=== PATIENT | female | born 1955 | race Asian ===

== ENCOUNTER 2016-06-17 17:35 | Emergency (ER) | payer SELFPAY ==
[~2016-06-17] VITALS: Ht 154.9 cm; Wt 44.0 kg
[2016-06-17] MEDS ORDERED: NKM (17:58)
[2016-06-17 18:01] VITALS: BP 155/83
[2016-06-17 18:15] LABS: APPEARANCE,URINE SLIGHTLY CLOUDY; KETONES,URINE NEGATIVE (NEGATIVE); LEUKOCYTE ESTERASE ,URINE 3+ (NEGATIVE); NITRITE,URINE NEGATIVE (NEGATIVE); PH,URINE 7 (4.5-8.0); PROTEIN,URINE 2+ (NEGATIVE); UROBILINOGEN,URINE NORMAL MG/DL (0.0-1.0)
[2016-06-17 19:02] LABS: AMORPHOUS SEDIMENT,UR FEW /LPF; BACTERIA,URINE MODERATE /HPF; SQUAMOUS EPITHELIAL CELL,UR FEW /LPF (NONE/OCC); WBC,URINE 20-30 /HPF (0 - 2)
[2016-06-17 19:13] VITALS: BP 155/91
[2016-06-17] MEDS ORDERED: KEFLEX500 MG ORAL (19:15)
--- NOTE | 2016-06-17 22:40 | Emergency Room Report ---
History of Present Illness General Chief Complaint: Female Urogenital Problems Source: Patient Present Illness HPI 61-year-old female presents to ED complaining of dysuria x4 days. There is frequent history of UTI. Notes burning sensation, 10 out of 10, worse with urination. Denies flank pain. Denies nausea or vomiting. Denies fevers or chills. No aggravating relieving factors. Denies any other associated symptom Allergies: Coded Allergies: No Known Allergies (Unverified , 06/17/16) Patient History Past Medical History: none Past Surgical History: none Pertinent Family History: none Social History: Denies: alcohol use, drug use, smoking Now: No Immunizations: UTD Reviewed Nursing Documentation: PMH: Agreed, PSxH: Agreed Nursing Documentation-PMH Past Medical History: No Stated History Review of Systems All Other Systems: negative except mentioned in HPI Physical Exam Vital Signs Date Time Temp Pulse Resp B/P Pulse Ox O2 Delivery O2 Flow Rate FiO2 06/17/16 17:51 98.8 76 16 155/83 100 Room Air Sp02 EP Interpretation: reviewed, normal General Appearance: no apparent distress, alert, GCS 15, non-toxic Head: normocephalic Eyes: bilateral eye PERRL, bilateral eye normal inspection ENT: normal ENT inspection Neck: normal inspection Respiratory: normal inspection Cardiovascular #1: normal inspection Gastrointestinal: normal bowel sounds, non tender, soft, non-distended, no guarding, no rebound Rectal: deferred Genitourinary: no CVA tenderness Musculoskeletal: normal inspection Neurologic: alert, oriented x3, responsive, motor strength/tone normal, sensory intact, speech normal Psychiatric: normal inspection Skin: normal inspection Lymphatic: normal inspection Medical Decision Making Diagnostic Impression: Primary Impression: Urinary tract infection Qualified Codes: N39.0 - Urinary tract infection, site not specified ER Course Hospital Course 61-year-old female presents to ED complaining of dysuria Differential diagnoses include: UTI, cystitis, pyelonephritis Clinical course Patient placed on stretcher. After initial history and physical I ordered UA UA +bacteria Diagnosis - UTI Stable and discharged home with prescriptions for Rx Keflex. Instructed to followup with PMD. Return to ED if symptoms recur or worsen Labs Test 06/17/16 18:05 Urine Color Pale yellow Urine Appearance Slightly cloudy Urine pH 7 (4.5-8.0) Urine Specific [place] 1.005 (1.005-1.035) Urine Protein 2+ (NEGATIVE) Urine Glucose (UA) Negative (NEGATIVE) Urine Ketones Negative (NEGATIVE) Urine Occult Blood 5+ (NEGATIVE) Urine Nitrite Negative (NEGATIVE) Urine Bilirubin Negative (NEGATIVE) Urine Urobilinogen Normal MG/DL (0.0-1.0) Urine Leukocyte Esterase 3+ (NEGATIVE) Urine RBC 10-15 /HPF (0 - 2) Urine WBC 20-30 /HPF (0 - 2) Urine Squamous Epithelial Cells Few /LPF (NONE/OCC) Urine Amorphous Sediment Few /LPF (NONE) Urine Bacteria Moderate /HPF (NONE) Last Vital Signs Date Time Temp Pulse Resp B/P Pulse Ox O2 Delivery O2 Flow Rate FiO2 06/17/16 19:13 98.8 16 155/91 100 Room Air 06/17/16 17:51 76 Status: improved Disposition: HOME, SELF-CARE Condition: Stable Scripts Cephalexin* (KEFLEX*) 500 Mg Capsule 500 MG ORAL Q6H, #28 CAP 0 Refills Prov: EVERETT SAAVEDRA M.D. 06/17/16 Referrals: NOT CHOSEN EMILIE/,REFERRING (PCP) Patient Instructions: Urinary Tract Infection EVERETT SAAVEDRA M.D. Jun 17, 2016 22:40
== END 2016-06-17 19:13 | disposition home or self-care (01) ==
LOC: EMR 18:19
DX: N39.0 Urinary tract infection, site not specified (principal)
CPT/HCPCS: 81003; 87086; 87181; 99283

== ENCOUNTER 2019-11-02 09:23 | Emergency (ER) | payer MEDICAID, OTHER ==
[~2019-11-02] VITALS: Ht 154.9 cm; Wt 43.1 kg
[~2019-11-02 09:23] MED LIST: KEFLEX500 MG ORAL; NKM
[2019-11-02 10:05] VITALS: BP 175/75
[2019-11-02] MEDS ORDERED: Bacitracin Oint UD TOPIC ONE (10:45)
[2019-11-02] MEDS ORDERED: Tetanus/Diptheria/Pertussis IM ONE (10:45)
--- NOTE | 2019-11-02 12:12 | Emergency Room Report ---
History of Present Illness General Chief Complaint: Lower Back Pain or Injury Source: Patient Present Illness HPI Patient slipped in the shower last night and fell onto her back and elbow. She did not lose consciousness. She cut her elbow. The pain is severe at this time. She is able to ambulate. She denies any numbness or weakness in her lower extremities. She is not taking any medication. She states the pain is severe and rates it 9/10. When I asked her if it is in her back she says no is above her back. Also her tailbone is sore. There is no radiation down her legs. There is no numbness or weakness. She denies blood thinners, oncologic problems, prior fractures. She denies incontinence or perineal numbness. She has placed an ice pack on the area and it is helping but she still complains of severe pain. She is uncertain when her last tetanus shot was. No sore throat, chest pain, palpitations, nausea, vomiting, diarrhea, dysuria, abdominal pain, shortness of breath, depression, anxiety, visual changes, dizziness, headache. Allergies: Coded Allergies: No Known Allergies (Unverified , 06/17/16) COVID-19 Screening Contact w/high risk pt: No Experienced COVID-19 symptoms?: No COVID-19 Testing performed SHOE LINING FITTER: No Patient History Past Medical History: see triage record Social History: Denies: smoking, alcohol use Social History Narrative From home Reviewed Nursing Documentation: PMH: Agreed; PSxH: Agreed Nursing Documentation-PMH Past Medical History: No History, Except For Hx Hypertension: Yes Review of Systems All Other Systems: negative except mentioned in HPI Physical Exam Vital Signs Date Time Temp Pulse Resp B/P (MAP) Pulse Ox O2 Delivery O2 Flow Rate FiO2 11/02/19 10:05 98.9 86 20 175/75 96 Room Air Sp02 EP Interpretation: reviewed, normal General Appearance: well appearing, no apparent distress, GCS 15, non-toxic Head: normocephalic Eyes: bilateral eye normal inspection, bilateral eye PERRL ENT: moist mucus membranes Neck: full range of motion, supple, no bony tend Respiratory: lungs clear Cardiovascular #1: regular rate, rhythm Cardiovascular #2: 2+ radial (R) Gastrointestinal: normal inspection, normal bowel sounds, non tender Musculoskeletal: gait/station normal, normal range of motion, pelvis stable, tenderness - Lumbar area no point tenderness, also tenderness in the coccyx area , moves extm spontaneously Neurologic: alert, motor strength/tone normal, DTRs symmetric, sensory intact, cerebellar normal, speech normal Psychiatric: mood/affect normal - Slightly anxious Skin: normal color, laceration - Right elbow 3 cm superficial no bleeding Procedures Laceration/Wound Repair Laceration/Wound Repair : Consent: Verbal Wound Location: upper extremity Wound's Depth, Shape: superficial Wound Length (cm): 2 Wound Explored: clean Betadine Prep?: Yes Anesthesia: other - None Wound Debrided: None Wound Repaired With: Steri-strips Sterile Dressing Applied?: Yes Splint Applied?: No Sling Applied?: No Patient Tolerated: Well Progress Wound care was performed by RN Medical Decision Making Diagnostic Impression: Primary Impression: Multiple trauma Additional Impressions: Back contusion Qualified Codes: S20.229A - Contusion of unspecified back wall of thorax, initial encounter Elbow laceration Qualified Codes: S51.011A - Laceration without foreign body of right elbow, initial encounter ER Course Patient presents post slip and fall with back pain and right elbow laceration. Differential includes compression fracture, contusion, superficial laceration, lumbar sprain amongst others. Patient is ambulatory and does not have point tenderness of her back but because of her age lumbar spine films are indicated. In addition there are no red flag signs or symptoms. Patient treated with Tylenol. The laceration is superficial and this is a late presentation. Steri- Strips are adequate to close the laceration. Lumbar spine films without fracture. Patient improved with treatment. Discussed findings with patient and treatment plan. Patient stable for outpatient observation and treatment. Other X-Ray Diagnostic Results Other X-Ray Diagnostic Results : X-Ray ordered: Lumbar spine film # of Views/Limited Vs Complete: 3 View Indication: Pain EP Interpretation: Yes Interpretation: no dislocation, no soft tissue swelling, no fractures, other - Increased stool load Impression: Other Electronically Signed by: Electronically signed by Kevin Dyer MD Last Vital Signs Date Time Temp Pulse Resp B/P (MAP) Pulse Ox O2 Delivery O2 Flow Rate FiO2 11/02/19 12:20 98.6 84 17 180/90 98 Room Air Status: improved Disposition: HOME, SELF-CARE Condition: Improved Scripts Acetaminophen (Tylenol) 325 Mg Tablet 650 MG ORAL Q6H PRN for Prn Pain/Headache/Temp > 101, #20 TAB 0 Refills Prov: Kevin Dyer MD 11/02/19 Tramadol Hcl* (ULTRAM*) 50 Mg Tablet 50 MG ORAL Q6H PRN for For Pain, #12 TAB 0 Refills Prov: Kevin Dyer MD 11/02/19 Methocarbamol* (ROBAXIN-500*) 500 Mg Tablet 500 MG ORAL TID PRN for For Pain, #10 TAB 0 Refills Prov: Kevin Dyer MD 11/02/19 Referrals: NON PHYSICIAN (PCP) Kevin Dyer MD Nov 02, 2019 12:12
[2019-11-02] MEDS ORDERED: TRAMADOL HCL50 MG ORAL (12:15)
[2019-11-02] MEDS ORDERED: TYLENOL325 MG ORAL (12:15)
[2019-11-02] MEDS ORDERED: ROBAXIN-500MG ORAL (12:15)
[2019-11-02 12:20] VITALS: BP 180/90
--- NOTE | 2019-11-02 12:28 | Diagnostic Imaging Report ---
EXAM: X-RAY [facility] CLINICAL HISTORY: Back pain. COMPARISON: None FINDINGS: Total of 3 views of the lumbar spine were obtained. Alignment is anatomic. There is diffuse osteopenia. There is loss of height of the T12 vertebral body of undetermined age. Lumbar spine otherwise intact. Disc spaces are relatively well-maintained. Surrounding soft tissue is normal. IMPRESSION: MILD LOSS OF HEIGHT OF THE T12 VERTEBRAL BODY OF UNDETERMINED AGE.
== END 2019-11-02 12:20 | disposition home or self-care (01) ==
LOC: EMR 10:20
DX: S20.229A Contusion of unspecified back wall of thorax, initial encounter (principal); S51.011A Laceration without foreign body of right elbow, initial encounter; W18.2XXA Fall in (into) shower or empty bathtub, initial encounter; Y92.9 Unspecified place or not applicable; I10 Essential (primary) hypertension
CPT/HCPCS: 72020; 90471; 90715; 99283

== ENCOUNTER 2019-11-04 07:58 | Emergency (ER) | payer MEDICAID, OTHER ==
[~2019-11-04] VITALS: Ht 154.9 cm; Wt 43.1 kg
[~2019-11-04 07:58] MED LIST changes: +ROBAXIN-500MG ORAL; +TRAMADOL HCL50 MG ORAL; +TYLENOL325 MG ORAL
[2019-11-04 08:19] VITALS: BP 164/78
--- NOTE | 2019-11-04 08:21 | Emergency Room Report ---
History of Present Illness General Chief Complaint: Vomiting Source: Patient Present Illness HPI Is a 64-year-old female who presented after recent fall. She reports having fallen in the bathtub. Increased pain to the low back. Return to the hospital because she was having episode of vomiting after taking her medications. Denies any abdominal pain. Denies taking any blood thinners. Allergies: Coded Allergies: No Known Allergies (Unverified , 06/17/16) COVID-19 Screening Contact w/high risk pt: No Experienced COVID-19 symptoms?: No COVID-19 Testing performed COMMERCIAL OR INSTITUTIONAL CLEANER: No Patient History Reviewed Nursing Documentation: PMH: Agreed; PSxH: Agreed Nursing Documentation-PM Past Medical History: No History, Except For Hx Hypertension: Yes Review of Systems All Other Systems: negative except mentioned in HPI Physical Exam Vital Signs Date Time Temp Pulse Resp B/P (MAP) Pulse Ox O2 Delivery O2 Flow Rate FiO2 11/04/19 08:03 98.2 72 16 164/78 (106) 100 Room Air Sp02 EP Interpretation: reviewed, normal General Appearance: normal inspection, well appearing, no apparent distress, alert, GCS 15 Head: atraumatic ENT: normal ENT inspection, hearing grossly normal, normal voice Neck: normal inspection, full range of motion, supple, no bony tend Respiratory: normal inspection, lungs clear, normal breath sounds, no respiratory distress, no retraction, no wheezing Cardiovascular #1: regular rate, rhythm, no edema Gastrointestinal: normal inspection, normal bowel sounds, non tender, soft, no guarding, no hernia Genitourinary: no CVA tenderness Musculoskeletal: normal inspection, back normal, normal range of motion Neurologic: alert, motor strength/tone normal, commutator assembler III-XII nml as tested, responsive, speech normal, abnormal gait - Wide-based gait, normal inspection Psychiatric: normal inspection, judgement/insight normal, mood/affect normal Medical Decision Making Diagnostic Impression: Primary Impression: Compression fracture of T12 vertebra Additional Impressions: Hyponatremia Lacunar infarct, acute ER Course Patient presented for low back pain. Differential diagnosis include was not limited to fracture, contusion, head injury among others. Because of complexity of patient's case laboratory tests and imaging studies were ordered. Patient was noted to have somewhat abnormal gait she had increased difficulty with movement due to pain. CT imaging of the lumbar spine was ordered due to patient's persistent pain CT imaging showed compression fracture of the T12 body. CT of the head read by radiology showed periventricular white matter disease as well as symmetric low density in the basal ganglia bilaterally possible of bilateral lacunar infarct should be considered in addition no focal low density is noted in the anabelle and midbrain infarct versus demyelination. Patient will require further evaluation with MRI. Patient was discussed with Dr. HILL and patient will be transferred to [facility]. Patient appears to be stable for transfer. Labs Test 11/04/19 08:30 11/04/19 09:30 White Blood Count 14.8 K/UL (4.8-10.8) Red Blood Count 3.96 M/UL (4.20-5.40) Hemoglobin 13.2 G/DL (12.0-16.0) Hematocrit 37.6 % (37.0-47.0) Mean Corpuscular Volume 95 FL (80-99) Mean Corpuscular Hemoglobin 33.4 PG (27.0-31.0) Mean Corpuscular Hemoglobin Concent 35.2 G/DL (32.0-36.0) Red Cell Distribution Width 10.9 % (11.6-14.8) Platelet Count 342 K/UL (150-450) Mean Platelet Volume 7.2 FL (6.5-10.1) Neutrophils (%) (Auto) % (45.0-75.0) Lymphocytes (%) (Auto) % (20.0-45.0) Monocytes (%) (Auto) % (1.0-10.0) Eosinophils (%) (Auto) % (0.0-3.0) Basophils (%) (Auto) % (0.0-2.0) Differential Total Cells Counted 100 Neutrophils % (Manual) 86 % (45-75) Lymphocytes % (Manual) 6 % (20-45) Monocytes % (Manual) 8 % (1-10) Eosinophils % (Manual) 0 % (0-3) Basophils % (Manual) 0 % (0-2) Band Neutrophils 0 % (0-8) Platelet Estimate Adequate Platelet Morphology Normal Red Blood Cell Morphology Normal Prothrombin Time 11.1 SEC (9.30-11.50) Prothromb Time International Ratio 1.0 (0.9-1.1) Activated Partial Thromboplast Time 25 SEC (23-33) Sodium Level 124 MMOL/L (136-145) Potassium Level 3.1 MMOL/L (3.5-5.1) Chloride Level 89 MMOL/L (98-107) Carbon Dioxide Level 30 MMOL/L (21-32) Anion Gap 5 mmol/L (5-15) Blood Urea Nitrogen 10 mg/dL (7-18) Creatinine 0.6 MG/DL (0.55-1.30) Estimat Glomerular Filtration Rate > 60 mL/min (>60) Glucose Level 131 MG/DL (74-106) Calcium Level 9.1 MG/DL (8.5-10.1) Total Bilirubin 0.6 MG/DL (0.2-1.0) Aspartate Amino Transf (AST/SGOT) 21 U/L (15-37) Alanine Aminotransferase (ALT/SGPT) 22 U/L (12-78) Alkaline Phosphatase 52 U/L (46-116) Total Protein 7.9 G/DL (6.4-8.2) Albumin 3.6 G/DL (3.4-5.0) Globulin 4.3 g/dL Albumin/Globulin Ratio 0.8 (1.0-2.7) Lipase 82 U/L (73-393) Urine Color Pale yellow Urine Appearance Clear Urine pH 6.5 (4.5-8.0) Urine Specific [place] 1.010 (1.005-1.035) Urine Protein Negative (NEGATIVE) Urine Glucose (UA) Negative (NEGATIVE) Urine Ketones 2+ (NEGATIVE) Urine Blood 2+ (NEGATIVE) Urine Nitrite Negative (NEGATIVE) Urine Bilirubin Negative (NEGATIVE) Urine Urobilinogen Normal MG/DL (0.0-1.0) Urine Leukocyte Esterase Negative (NEGATIVE) Last Vital Signs Date Time Temp Pulse Resp B/P (MAP) Pulse Ox O2 Delivery O2 Flow Rate FiO2 11/04/19 08:03 98.2 72 16 164/78 (106) 100 Room Air Status: unchanged Disposition: SHORT-TERM HOSP Condition: Stable Ric Phillips MD Nov 04, 2019 08:21
[2019-11-04 08:49] LABS: HEMATOCRIT 37.6 % (37.0-47.0); HEMOGLOBIN 13.2 G/DL (12.0-16.0); MEAN CORPUSCULAR VOLUME 95 FL (80-99); PLATELET COUNT 342 K/UL (150-450); RED BLOOD COUNT 3.96 M/UL (4.20-5.40); RED CELL DISTRIBUTION WIDTH 10.9 % (11.6-14.8); WHITE BLOOD COUNT 14.8 K/UL (4.8-10.8)
--- NOTE | 2019-11-04 09:00 | NUR ---
ED Nurse Note:pt. came from home with c/o back pain and nausea vomiting, also c/o generalized weakness, VSS, ambulatory with unsteady gait, blood and urine sent to labs, skin is intact
[2019-11-04 09:07] LABS: ANION GAP 5 mmol/L (5-15); BLOOD UREA NITROGEN 10 mg/dL (7-18); CALCIUM 9.1 MG/DL (8.5-10.1); CARBON DIOXIDE 30 MMOL/L (21-32); CHLORIDE 89 MMOL/L (98-107); CREATININE 0.6 MG/DL (0.55-1.30); POTASSIUM 3.1 MMOL/L (3.5-5.1); SODIUM 124 MMOL/L (136-145)
[2019-11-04 09:12] LABS: ALANINE AMINOTRANSFERASE 22 U/L (12-78); ALBUMIN 3.6 G/DL (3.4-5.0); ALBUMIN/GLOBULIN RATIO 0.8 (1.0-2.7); ALKALINE PHOSPHATASE 52 U/L (46-116); ASPARTATE AMINO TRANSFERASE 21 U/L (15-37); BILIRUBIN,TOTAL 0.6 MG/DL (0.2-1.0)
--- NOTE | 2019-11-04 09:42 | Diagnostic Imaging Report ---
Indication: Reason For Exam: PAIN Technique: Continuous helical CT scanning of the head was performed without intravenous contrast material. Axial and coronal 5 mm sections were generated. Dose: Total Dose Length Product - DLP 04/01/[address] Dose Index - CTDIvol(s) 53.40 mGy. Automated exposure control was utilized for dose reduction. Comparison: None Findings: The ventricles are normal. There is considerable periventricular low density. Low-density is also noted in the basal ganglia bilaterally. There is also focal low density in the right anabelle and right midbrain. No shift of midline structures. No abnormal extra-axial fluid collections. No evidence of hemorrhage. Impression: Periventricular low-density likely representing chronic small vessel white matter ischemic change. There is also symmetric low density in the basal ganglia bilaterally. Possibility of bilateral lacunar infarcts should be considered. In addition, focal low density is noted in the anabelle and midbrain. Infarct versus demyelination should be considered. Further evaluation with MRI suggested. The CT scanner at [facility] is accredited by the [employer] and the scans are performed using protocols designed to limit radiation exposure to as low as reasonably achievable to attain images of sufficient resolution adequate for diagnostic evaluation.
--- NOTE | 2019-11-04 09:46 | Diagnostic Imaging Report ---
Indication: Reason For Exam: PAIN chest trauma Technique: CT scan of the lumbar spine performed without intravenous contrast material. Axial, coronal, and sagittal images were generated. Dose: Total Dose Length Product - DLP [address] Dose Index - CTDIvol(s) 4.20 mGy. Automated exposure control was utilized for dose reduction. Comparison: None Findings: Alignment is intact. There is a compression fracture of the body of T12. This appears acute. No significant retropulsion is identified. No other fractures. The discs are maintained. There is some mild degenerative change and facets. Spinal canal is normal in width. There is some calcification of the aorta. The remainder the study is unremarkable. Impression: Compression fracture of the body of T12, acute. Minimal degenerative change. Otherwise negative. The CT scanner at [facility] is accredited by the [employer] and the scans are performed using protocols designed to limit radiation exposure to as low as reasonably achievable to attain images of sufficient resolution adequate for diagnostic evaluation. Lumbar
[2019-11-04 09:59] LABS: APPEARANCE,URINE CLEAR; BILIRUBIN, URINE NEGATIVE (NEGATIVE); COLOR,URINE PALE YELLOW; GLUCOSE, URINE (UA) NEGATIVE (NEGATIVE); KETONES,URINE 2+ (NEGATIVE); LEUKOCYTE ESTERASE ,URINE NEGATIVE (NEGATIVE); NITRITE,URINE NEGATIVE (NEGATIVE); PH,URINE 6.5 (4.5-8.0); PROTEIN,URINE NEGATIVE (NEGATIVE); UROBILINOGEN,URINE NORMAL MG/DL (0.0-1.0)
[2019-11-04 10:27] VITALS: BP 167/76
--- NOTE | 2019-11-04 10:58 | NUR ---
ED Nurse Note: Pt BP 177/82. Pt took her own BP med Lisinopril 10-12.5mg 1 tab po. ERMD aware and aknowledged.
[2019-11-04] MEDS ORDERED: Morphine Sulfate 2mg/ml Inj(IV/IM USE ONLY) IVP ONE (11:00)
[2019-11-04] MEDS ORDERED: cefTRIAXone 1 GM in NS 55 ML IVPB ONE (11:15)
[2019-11-04] MEDS ORDERED: Aspirin Baby 81mg ORAL ONE (11:15)
--- NOTE | 2019-11-04 12:15 | NUR ---
ED Nurse Note:pt. refused to be transfered to [facility], ,may be transfered to [facility]
[2019-11-04 12:27] VITALS: BP 162/71
[2019-11-04 12:40] VITALS: BP 162/71
--- NOTE | 2019-11-04 12:40 | NUR ---
ED Nurse Note:called report to [facility] given to Bear RN, BP is 162/71, pt. is in stable condition, pt. was sent by ambulance
== END 2019-11-04 12:40 | disposition short-term general hospital (02) ==
LOC: EMR 08:30 → EDBEDREQ 09:20 → EMR 12:40
DX: S22.088A Other fracture of T11-T12 vertebra, initial encounter for closed fracture (principal); E87.1 Hypo-osmolality and hyponatremia; I63.81 Other cerebral infarction due to occlusion or stenosis of small artery; I10 Essential (primary) hypertension; W18.2XXA Fall in (into) shower or empty bathtub, initial encounter; Y93.E1 Activity, personal bathing and showering; Y92.012 Bathroom of single-family (private) house as the place of occurrence of the external cause
CPT/HCPCS: 36415; 70450; 72131; 80053; 81001; 83690; 85007; 85025; 85610; 85730; 93005; 96374; 99284; J2270